=== PATIENT | male | born 1960 | race African-American/Black ===

== ENCOUNTER 2017-02-04 09:56 | Inpatient (IN) | payer OTHER ==
[2017-02-04 10:09] VITALS: BMI 23.5
--- NOTE | 2017-02-04 10:20 | HP ---
CIWA Score - CIWA Score Nausea/Vomitin-Mild Nausea/No Vomiting Muscle Tremors: 3 Anxiety: 4-Mod. Anxious/Guarded Agitation: 0-Normal Activity Paroxysmal Sweats: No Perspiration Orientation: 0-Oriented Tacttile Disturbances: 0-None Auditory Disturbances: 1-Very Mild Visual Disturbances: 1-Very Mild Sensitivity Headache: 2-Mild CIWA-Ar Total Score: 12 Admission ROS BHS - HPI Chief Complaint: I felt sick, I need help, it's from the drinking Allergies/Adverse Reactions: Allergies Allergy/AdvReac Type Severity Reaction Status Date / Time No Known Allergies Allergy Verified 02/04/17 10:13 History of Present Illness: 56 yo gentleman here for detox from alcohol - was at [facility] emergency room and sent here for detox - no seizures, past history of detox several years ago - reports multiple suicidal thoughts/admissions. Patient is prescribed oxycodone 30mg for pain - when told he cannot get that in detox he states 'that' s ok'. Exam Limitations: Clinical Condition - Ebola screening Have you traveled outside of the country in the last 21 days: No Have you had contact with anyone from an Ebola affected area: No Have you been sick,other than usual withdrawal symptoms: No Do you have a fever: No - Review of Systems Constitutional: Loss of Appetite, Malaise EENT: reports: No Symptoms Reported Respiratory: reports: No Symptoms reported Cardiac: reports: No Symptoms Reported GI: reports: Poor Appetite, Poor Fluid Intake : reports: Frequency Musculoskeletal: reports: Joint Pain Integumentary: reports: Dryness Neuro: reports: Headache Endocrine: reports: No Symptoms Reported Hematology: reports: No Symptoms Reported Psychiatric: reports: Judgement Intact, Mood/Affect Appropiate, Orientated x3, Anxious Other Systems: Reviewed and Negative Patient History - Patient Medical History Hx Anemia: No Hx Asthma: No Hx Chronic Obstructive Pulmonary Disease (COPD): No Hx Cancer: No Hx Cardiac Disorders: No Hx Congestive Heart Failure: No Hx Hypertension: No Hx Hypercholesterolemia: No Hx Pacemaker: No HX Cerebrovascular Accident: No Hx Seizures: No Hx Dementia: No Hx Diabetes: No Hx Gastrointestinal Disorders: No Hx Liver Disease: Yes (they say 'it's bad' from the drinking) Hx Genitourinary Disorders: No Hx Sexually Transmitted Disorders: No Hx Renal Disease (ESRD): Yes (sometimes I pee blood) Hx Thyroid Disease: No Hx Human Immunodeficiency Virus (HIV): No Hx Hepatitis C: No Hx Depression: Yes Hx Suicide Attempt: Yes (multiple times, last time a week ago - wanted to jump off a bridge) Hx Bipolar Disorder: No Hx Schizophrenia: No - Patient Surgical History Past Surgical History: Yes Hx Cataract Extraction: Yes (jan 2016) Hx Orthopedic Surgery: Yes (left ankle repair about ) - PPD History Previous Implant?: No Implanted On Prior R Admission?: No PPD to be Administered?: Yes - Reproductive History Patient is a Female of Child Bearing Age (11 -55 yrs old): No (male) Patient : No - Smoking Cessation Smoking history: Current every day smoker Have you smoked in the past 12 months: Yes Aproximately how many cigarettes per day: 20 Initiated information on smoking cessation: Yes 'Breaking Loose' booklet given: 02/04/17 - Substance & Tx. History Hx Alcohol Use: Yes Hx Substance Use: No Substance Use Type: Alcohol Hx Substance Use Treatment: Yes (detox) - Substances Abused Alcohol Route: Oral Frequency: Daily Amount used: six pack of 24 oz beers; 3 pints liquor Age of first use: 17 Date of Last Use: 02/03/17 Family Disease History - Family Disease History Family Disease History: Other: Father (, ? ), Mother (, stroke) , Brother (7 - living - etoh), Sister (1 - living), Son (1 - living - age 34), Daughter (1 - living - age 31) Admission Physical Exam BHS - Vital Signs Vital Signs: Vital Signs - 24 hr 02/04/17 09:58 Temperature 96.4 F L Pulse Rate 90 Respiratory 18 Rate Blood Pressure 120/80 - Physical General Appearance: Yes: Nourished, Appropriately Dressed, Moderate Distress, Anxious HEENTM: Yes: Hearing grossly Normal, Normal ENT Inspection, Normocephalic, Normal Voice Respiratory: Yes: Normal Breath Sounds, No Respiratory Distress Neck: Yes: No masses,lesions,Nodules, Supple Breast: Yes: Breast Exam Deferred Cardiology: Yes: Regular Rhythm, Regular Rate Abdominal: Yes: Soft Genitourinary: Yes: Frequency Back: Yes: Normal Inspection Musculoskeletal: Yes: full range of Motion, Gait Steady, Other (left ankle surgical scar) Extremities: Yes: Normal Capillary Refill, Normal Inspection Neurological: Yes: Fully Oriented, Alert, Normal Mood/Affect, Normal Response Integumentary: Yes: Normal Color, Dry, Warm Lymphatic: Yes: Within Normal Limits - Diagnostic (1) Alcohol dependence with uncomplicated withdrawal Current Visit: Yes Status: Acute (2) Nicotine dependence Current Visit: Yes Status: Chronic Qualifiers: Nicotine product type: cigarettes Substance use status: uncomplicated Qualified Code(s): F17.210 - Nicotine dependence, cigarettes, uncomplicated (3) Ankle pain, chronic Current Visit: Yes Status: Acute Qualifiers: Laterality: left Qualified Code(s): M25.572 - Pain in left ankle and joints of left foot; G89.29 - Other chronic pain (4) History of cataract surgery Current Visit: Yes Status: Chronic Qualifiers: Laterality: unspecified laterality Qualified Code(s): Z98.49 - Cataract extraction status, unspecified eye Comment: both eyes - continues to take eye drops Cleared for Admission BHS - Detox or Rehab [facility] Level of Care: Medically Managed Detox Regimen/Protocol: Librium S Breath Alcohol Content Breath Alcohol Content: 0.039 Urine Drug Screen - Results Drug Screen Negative: No Urine Drug Screen Results: BZO-Benzodiazepines
[2017-02-04] MEDS ORDERED: LOPERAMIDE HCL 2 MG CAPSULE PO PRN (10:27)
[2017-02-04] MEDS ORDERED: chlordiazePOXIDE HCL 25 MG CAPSULE PO PRN (10:27)
[2017-02-04] MEDS ORDERED: MAGNESIUM CITRATE 300 ML BOTTLE PO PRN (10:27)
[2017-02-04] MEDS ORDERED: MAGNESIUM HYDROX 2400MG/30ML ORAL SUSPENSION 30 ML CUP PO PRN (10:27)
[2017-02-04] MEDS ORDERED: MENTHOL/PHENOL 1 EACH UD MM PRN (10:27)
[2017-02-04] MEDS ORDERED: ACETAMINOPHEN 325 MG TABLET (FP) PO PRN (10:27)
[2017-02-04] MEDS ORDERED: hydrOXYzine PAMOATE 50 MG CAPSULE (FP) PO PRN (10:27)
[2017-02-04] MEDS ORDERED: P-EPHED 60MG/TRIPROLIDI 2.5MG TABLET PO PRN (10:27)
[2017-02-04] MEDS ORDERED: guaiFENesin/D-METHORPHAN HB 10 ML UNIT-DOSE CUPS PO PRN (10:27)
[2017-02-04] MEDS ORDERED: MAG HYDROX/AL HYDROX/SIMETH 30 ML UNIT-DOSE CUP PO PRN (10:27)
[2017-02-04] MEDS ORDERED: chlordiazePOXIDE HCL 25 MG CAPSULE PO ONE (11:30)
[2017-02-04] MEDS: NICOTINE 21 MG/24 HOURS TOPICAL PATCH TD SCH (12:05)
[2017-02-04] MEDS ORDERED: [UNRECOGNIZED DRUG - OTHER] OU SCH (14:00)
[2017-02-04] MEDS ORDERED: KETOROLAC TROMETHAMINE OU SCH (14:00)
[2017-02-04] MEDS: prednisoLONE ACETATE 1% OPHTH SUSP 5 ML BOTTLE OU SCH ×2 (14:35→23:13)
[2017-02-04] MEDS: KETOROLAC TROMETHAMINE 0.5% 5 ML BOTTLE OPTHALMIC OU SCH ×2 (14:35→23:13)
[2017-02-04] MEDS: IBUPROFEN 400 MG TABLET (FP) PO PRN (15:29)
[2017-02-04] MEDS: chlordiazePOXIDE HCL 25 MG CAPSULE PO SCH ×2 (17:54→23:13)
[2017-02-04] MEDS ORDERED: diphenhydrAMINE HCL 50 MG CAPSULE PO PRN (22:00)
[2017-02-04 22:31] LABS: URINE APPEARANCE CLEAR; URINE BILIRUBIN NEGATIVE (NEGATIVE); URINE BLOOD NEGATIVE (NEGATIVE); URINE COLOR LTYELLOW; URINE GLUCOSE (UA) NEGATIVE (NEGATIVE); URINE KETONE NEGATIVE (NEGATIVE); URINE LEUK ESTERASE NEGATIVE (NEGATIVE); URINE NITRITE NEGATIVE (NEGATIVE); URINE PROTEIN NEGATIVE (NEGATIVE); URINE UROBILINOGEN NEGATIVE mg/dL (0.2-1.0)
[2017-02-04] MEDS: THIAMINE HCL 100 MG TABLET (FP) PO SCH (23:13)
[2017-02-05] MEDS: KETOROLAC TROMETHAMINE 0.5% 5 ML BOTTLE OPTHALMIC OU SCH ×3 (06:28→22:08)
[2017-02-05] MEDS: prednisoLONE ACETATE 1% OPHTH SUSP 5 ML BOTTLE OU SCH ×3 (06:28→22:08)
[2017-02-05] MEDS: chlordiazePOXIDE HCL 25 MG CAPSULE PO SCH ×4 (06:28→22:08)
[2017-02-05 09:55] LABS: MCH 34.2 pg (25.7-33.7); MCHC 32.7 g/dl (32.0-35.9); MEAN CELL VOLUME 104.3 fl (80-96); MEAN PLT VOLUME 11.7 fl (7.5-11.1); WHITE BLOOD COUNT 4.1 K/mm3 (4.0-10.0)
--- NOTE | 2017-02-05 09:55 | EKG ---
Test Reason : Blood Pressure : / mmHG Vent. Rate : 072 BPM Atrial Rate : 072 BPM P-R Int : 146 ms QRS Dur : 092 ms QT Int : 372 ms P-R-T Axes : 026 052 049 degrees QTc Int : 407 ms NORMAL SINUS RHYTHM NORMAL ECG NO PREVIOUS ECGS AVAILABLE Confirmed by MD LIZA, PORFIRIO ([id number]) on 02/05/2017 9:55:34 AM Referred By: Confirmed By:PORFIRIO DE JESUS MD
[2017-02-05 09:58] LABS: ALBUMIN 3.3 g/dl (3.4-5.0); ANION GAP 7 (8-16); CALCIUM 9.3 mg/dL (8.5-10.1); CO2 30 mmol/L (21-32); GLUCOSE,RANDOM 94 mg/dL (74-106)
[2017-02-05 10:01] LABS: ALK PHOS 84 U/L (45-117); CREATININE 0.6 mg/dL (0.7-1.3); SGOT/AST 39 U/L (15-37); SGPT/ALT 70 U/L (12-78); TOT PROT 6.7 g/dl (6.4-8.2)
[2017-02-05 10:32] LABS: PLATELET COMMENT2 NO CLOTTING DETECTED; PLATELET COUNT 57 K/MM3 (134-434); PLATELET ESTIMATE DECREASED (NORMAL)
[2017-02-05] MEDS: PRENATAL VITAMINS W/ FOLIC ACID TABLET (FP) PO SCH (10:44)
[2017-02-05] MEDS: NICOTINE 21 MG/24 HOURS TOPICAL PATCH TD SCH (10:44)
--- NOTE | 2017-02-05 15:42 | PN ---
S CIWA - CIWA Score Nausea/Vomitin Muscle Tremors: 4-Moderate,w/Arms Extend Anxiety: 4-Mod. Anxious/Guarded Agitation: 4-Moderately Restless Paroxysmal Sweats: 3 Orientation: 0-Oriented Tacttile Disturbances: 1-Very Mild Itch/Numbness Auditory Disturbances: 0-None Visual Disturbances: 0-None Headache: 1-Very Mild CIWA-Ar Total Score: 20 BHS Progress Note (SOAP) Subjective: Tremor, chills, nausea, sweating, anxious Objective: 02/05/17 15:40 Last Vital Signs Temp Pulse Resp BP Pulse Ox 98.5 F 72 18 114/81 02/05/17 13:14 02/05/17 13:14 02/05/17 13:14 02/05/17 13:14 Laboratory Tests 02/04/17 02/05/17 02/05/17 22:00 07:50 07:50 WBC 4.1 RBC 3.72 L Hgb 12.7 Hct 38.8 MCV 104.3 H MCH 34.2 H MCHC 32.7 RDW 15.0 Plt Count 57 L MPV 11.7 H Platelet Estimate Decreased Platelet Comment No clotting detected Sodium 138 Potassium 4.1 Chloride 101 Carbon Dioxide 30 Anion Gap 7 L BUN 8 Creatinine 0.6 L Creat Clearance w eGFR > 60 Random Glucose 94 Calcium 9.3 Total Bilirubin 1.0 AST 39 H ALT 70 Alkaline Phosphatase 84 Total Protein 6.7 Albumin 3.3 L Urine Color Ltyellow Urine Appearance Clear Urine pH 5.0 Ur Specific [place] >= 1.030 H Urine Protein Negative Urine Glucose (UA) Negative Urine Ketones Negative Urine Blood Negative Urine Nitrite Negative Urine Bilirubin Negative Urine Urobilinogen Negative Ur Leukocyte Esterase Negative RPR Titer 02/05/17 07:50 WBC RBC Hgb Hct MCV MCH MCHC RDW Plt Count MPV Platelet Estimate Platelet Comment Sodium Potassium Chloride Carbon Dioxide Anion Gap BUN Creatinine Creat Clearance w eGFR Random Glucose Calcium Total Bilirubin AST ALT Alkaline Phosphatase Total Protein Albumin Urine Color Urine Appearance Urine pH Ur Specific [place] Urine Protein Urine Glucose (UA) Urine Ketones Urine Blood Urine Nitrite Urine Bilirubin Urine Urobilinogen Ur Leukocyte Esterase RPR Titer Nonreactive Labs noted: plt 57 Assessment: 02/05/17 15:41 Withdrawal symptoms Noted with thrombocytopenia Plan: Continue detox Thrombocytopenia: monitor for bleeding/bruising, follow up with PCP/ [facility] in 1 week post discharge for monitoring
[2017-02-05] MEDS: THIAMINE HCL 100 MG TABLET (FP) PO SCH (22:08)
[2017-02-06] MEDS: KETOROLAC TROMETHAMINE 0.5% 5 ML BOTTLE OPTHALMIC OU SCH ×3 (06:11→21:59)
[2017-02-06] MEDS: chlordiazePOXIDE HCL 25 MG CAPSULE PO SCH ×2 (06:11→10:46)
[2017-02-06] MEDS: prednisoLONE ACETATE 1% OPHTH SUSP 5 ML BOTTLE OU SCH ×3 (06:11→21:59)
[2017-02-06] MEDS: PRENATAL VITAMINS W/ FOLIC ACID TABLET (FP) PO SCH (10:46)
[2017-02-06] MEDS: NICOTINE 21 MG/24 HOURS TOPICAL PATCH TD SCH (10:46)
--- NOTE | 2017-02-06 10:57 | PN ---
S CIWA - CIWA Score Nausea/Vomitin Muscle Tremors: 4-Moderate,w/Arms Extend Anxiety: 4-Mod. Anxious/Guarded Agitation: 4-Moderately Restless Paroxysmal Sweats: 3 Orientation: 0-Oriented Tacttile Disturbances: 1-Very Mild Itch/Numbness Auditory Disturbances: 0-None Visual Disturbances: 0-None Headache: 1-Very Mild CIWA-Ar Total Score: 20 BHS Progress Note (SOAP) Subjective: nausea, sweats, interrupted sleep, anxiety, tremors Objective: 02/06/17 10:56 Vital Signs - 8 hr 02/06/17 02/06/17 02/06/17 03:38 06:26 09:14 Temperature 97 F L 97.7 F Pulse Rate 67 75 Respiratory 18 18 18 Rate Blood Pressure 113/73 98/69 Laboratory Tests 02/04/17 02/05/17 02/05/17 22:00 07:50 07:50 WBC 4.1 RBC 3.72 L Hgb 12.7 Hct 38.8 MCV 104.3 H MCH 34.2 H MCHC 32.7 RDW 15.0 Plt Count 57 L MPV 11.7 H Platelet Estimate Decreased Platelet Comment No clotting detected Sodium 138 Potassium 4.1 Chloride 101 Carbon Dioxide 30 Anion Gap 7 L BUN 8 Creatinine 0.6 L Creat Clearance w eGFR > 60 Random Glucose 94 Calcium 9.3 Total Bilirubin 1.0 AST 39 H ALT 70 Alkaline Phosphatase 84 Total Protein 6.7 Albumin 3.3 L Urine Color Ltyellow Urine Appearance Clear Urine pH 5.0 Ur Specific [place] >= 1.030 H Urine Protein Negative Urine Glucose (UA) Negative Urine Ketones Negative Urine Blood Negative Urine Nitrite Negative Urine Bilirubin Negative Urine Urobilinogen Negative Ur Leukocyte Esterase Negative RPR Titer 02/05/17 07:50 WBC RBC Hgb Hct MCV MCH MCHC RDW Plt Count MPV Platelet Estimate Platelet Comment Sodium Potassium Chloride Carbon Dioxide Anion Gap BUN Creatinine Creat Clearance w eGFR Random Glucose Calcium Total Bilirubin AST ALT Alkaline Phosphatase Total Protein Albumin Urine Color Urine Appearance Urine pH Ur Specific [place] Urine Protein Urine Glucose (UA) Urine Ketones Urine Blood Urine Nitrite Urine Bilirubin Urine Urobilinogen Ur Leukocyte Esterase RPR Titer Nonreactive Assessment: 02/06/17 10:56 withdrawal sx Plan: cont detox, fluids
--- NOTE | 2017-02-06 14:33 | CONSULT ---
[facility] Psychiatric Consult - Data Date of interview: 02/06/17 Admission source: [facility] Identifying data: First admission to [facility] for this 56 y/o AA male seeking detox treatment on for alcohol dependence.Patient is single,a father of two,domiciled,unemployed and supported on SSI benefits. Substance Abuse History: Confirmed by patient. Smoking Cessation. Smoking history: Current every day smoker. Have you smoked in the past 12 months: Yes. Aproximately how many cigarettes per day: 20. Initiated information on smoking cessation: Yes. 'Breaking Loose' booklet given: 02/04/17. - Substance & Tx. History. Hx Alcohol Use: Yes. Hx Substance Use: No. Substance Use Type : Alcohol. Hx Substance Use Treatment: Yes (detox). - Substances Abused. Alcohol. Route: Oral. Frequency: Daily. Amount used: six pack of 24 oz beers ; 3 pints liquor. Age of first use: 17. Date of Last Use: 02/03/17 Medical History: Liver disease and a history of cataracts (extraction in 2015) + orthosurgery for fracture of left ankle (1989). Psychiatric History: Patient admits to one psychiatric hospitalization ([facility]).No recall of diagnosis or medications.Mr Bansal denies history of psychiatric OPD care.He admits to a history of suicide attempts via self-mutilation (wrist-cutting) years ago. Physical/Sexual Abuse/Trauma History: Patient denies. Additional Comment: Urine Drug Screen Results: BZO-Benzodiazepines.Noted. Mental Status Exam - Mental Status Exam Alert and Oriented to: Time, Place, Person Cognitive Function: Good Patient Appearance: Well Groomed Mood: Hopeful, Euthymic Affect: Appropriate, Normal Range Patient Behavior: Appropriate, Cooperative Speech Pattern: Clear Voice Loudness: Normal Thought Process: Goal Oriented Thought Disorder: Not Present Hallucinations: Denies Suicidal Ideation: Denies Homicidal Ideation: Denies Insight/Judgement: Poor Sleep: Poorly, Difficulty falling asleep Appetite: Good Muscle strength/Tone: Normal Gait/Station: Normal Psychiatric Findings - Problem List ([place] 1, 2,3) (1) Alcohol dependence with uncomplicated withdrawal Current Visit: Yes Status: Acute (2) Nicotine dependence Current Visit: Yes Status: Chronic Qualifiers: Nicotine product type: cigarettes Substance use status: uncomplicated Qualified Code(s): F17.210 - Nicotine dependence, cigarettes, uncomplicated - Initial Treatment Plan Initial Treatment Plan: Psychoeducation.Detoxification.Observation.
[2017-02-06] MEDS: chlordiazePOXIDE 5 MG CAPSULE PO SCH ×2 (17:01→21:59)
[2017-02-06] MEDS: IBUPROFEN 400 MG TABLET (FP) PO PRN (21:37)
[2017-02-06] MEDS: THIAMINE HCL 100 MG TABLET (FP) PO SCH (21:59)
[2017-02-07] MEDS: chlordiazePOXIDE 5 MG CAPSULE PO SCH ×2 (06:02→10:37)
[2017-02-07] MEDS: KETOROLAC TROMETHAMINE 0.5% 5 ML BOTTLE OPTHALMIC OU SCH (06:04)
[2017-02-07] MEDS: prednisoLONE ACETATE 1% OPHTH SUSP 5 ML BOTTLE OU SCH (06:04)
[2017-02-07 09:20] VITALS: BP 106/74; PULSE 71; TEMP 98.1
[2017-02-07] MEDS: NICOTINE 21 MG/24 HOURS TOPICAL PATCH TD SCH (10:37)
[2017-02-07] MEDS: PRENATAL VITAMINS W/ FOLIC ACID TABLET (FP) PO SCH (10:37)
--- NOTE | 2017-02-07 12:31 | DS ---
[facility] Detox Discharge Summary Admission Date: 02/04/17 Discharge Date: 02/07/17 - History Present History: Alcohol Dependence Additional Comments: PT DECLINED TO CONTINUE WITH DETOX FOR PERSONAL REASONS. Pertinent Past History: S/P CATARACT SX CHRONIC ANKLE PAIN - Physical Exam Results Vital Signs: Vital Signs Temperature 98.1 F 02/07/17 09:19 Pulse Rate 71 02/07/17 09:19 Respiratory Rate 18 02/07/17 09:19 Blood Pressure 106/74 02/07/17 09:19 O2 Sat by Pulse Oximetry (%) Pertinent Admission Physical Exam Findings: WITHDRAWAL SX Vital Signs Temperature 98.1 F 02/07/17 09:19 Pulse Rate 71 02/07/17 09:19 Respiratory Rate 18 02/07/17 09:19 Blood Pressure 106/74 02/07/17 09:19 O2 Sat by Pulse Oximetry (%) Laboratory Last Values WBC 4.1 K/mm3 (4.0-10.0) 02/05/17 07:50 RBC 3.72 M/mm3 (4.00-5.60) L 02/05/17 07:50 Hgb 12.7 GM/dL (11.7-16.9) 02/05/17 07:50 Hct 38.8 % (35.4-49) 02/05/17 07:50 MCV 104.3 fl (80-96) H 02/05/17 07:50 MCH 34.2 pg (25.7-33.7) H 02/05/17 07:50 MCHC 32.7 g/dl (32.0-35.9) 02/05/17 07:50 RDW 15.0 % (11.9-15.9) 02/05/17 07:50 Plt Count 57 K/MM3 (134-434) L 02/05/17 07:50 MPV 11.7 fl (7.5-11.1) H 02/05/17 07:50 Platelet Estimate Decreased (NORMAL) 02/05/17 07:50 Platelet Comment No clumping noted 02/05/17 07:50 Platelet Comment No clotting detected 02/05/17 07:50 Sodium 138 mmol/L (136-145) 02/05/17 07:50 Potassium 4.1 mmol/L (3.5-5.1) 02/05/17 07:50 Chloride 101 mmol/L (98-107) 02/05/17 07:50 Carbon Dioxide 30 mmol/L (21-32) 02/05/17 07:50 Anion Gap 7 (8-16) L 02/05/17 07:50 BUN 8 mg/dL (7-18) 02/05/17 07:50 Creatinine 0.6 mg/dL (0.7-1.3) L 02/05/17 07:50 Creat Clearance w eGFR > 60 (>60) 02/05/17 07:50 Random Glucose 94 mg/dL (74-106) 02/05/17 07:50 Calcium 9.3 mg/dL (8.5-10.1) 02/05/17 07:50 Total Bilirubin 1.0 mg/dL (0.2-1.0) 02/05/17 07:50 AST 39 U/L (15-37) H 02/05/17 07:50 ALT 70 U/L (12-78) 02/05/17 07:50 Alkaline Phosphatase 84 U/L (45-117) 02/05/17 07:50 Total Protein 6.7 g/dl (6.4-8.2) 02/05/17 07:50 Albumin 3.3 g/dl (3.4-5.0) L 02/05/17 07:50 Urine Color Ltyellow 02/04/17 22:00 Urine Appearance Clear 02/04/17 22:00 Urine pH 5.0 (5.0-8.0) 02/04/17 22:00 Ur Specific [place] >= 1.030 (1.005-1.025) H 02/04/17 22:00 Urine Protein Negative (NEGATIVE) 02/04/17 22:00 Urine Glucose (UA) Negative (NEGATIVE) 02/04/17 22:00 Urine Ketones Negative (NEGATIVE) 02/04/17 22:00 Urine Blood Negative (NEGATIVE) 02/04/17 22:00 Urine Nitrite Negative (NEGATIVE) 02/04/17 22:00 Urine Bilirubin Negative (NEGATIVE) 02/04/17 22:00 Urine Urobilinogen Negative mg/dL (0.2-1.0) 02/04/17 22:00 Ur Leukocyte Esterase Negative (NEGATIVE) 02/04/17 22:00 RPR Titer Nonreactive (NONREACTIVE) 02/05/17 07:50 - Treatment Hospital Course: Discharged Condition Good - Medication Discharge Medications: Ambulatory Orders Ketorolac Tromethamine/Pf [Acuvail] 1 each OU TID 02/04/17 Oxycodone HCl 30 mg PO TID PRN 02/04/17 Prednisolone 1% Ophthalmic [Pred Forte 1% -] 1 drop OU TID 02/04/17 - Diagnosis (1) Alcohol dependence with uncomplicated withdrawal Current Visit: Yes Status: Acute (2) Ankle pain, chronic Current Visit: Yes Status: Acute Qualifiers: Laterality: left Qualified Code(s): M25.572 - Pain in left ankle and joints of left foot; G89.29 - Other chronic pain (3) History of cataract surgery Current Visit: Yes Status: Chronic Qualifiers: Laterality: unspecified laterality Qualified Code(s): Z98.49 - Cataract extraction status, unspecified eye (4) Nicotine dependence Current Visit: Yes Status: Chronic Qualifiers: Nicotine product type: cigarettes Substance use status: uncomplicated Qualified Code(s): F17.210 - Nicotine dependence, cigarettes, uncomplicated - AMA Did Patient Leave Against Medical Advice: Yes (AMA)
[2017-02-07 13:03] LABS: HIV 1 & 2 AB NEGATIVE; HIV 1 AGp24 NEGATIVE
[2017-02-07] MEDS ORDERED: chlordiazePOXIDE HCL 10 MG CAPSULE PO SCH (17:00)
== END 2017-02-07 10:30 | disposition left against medical advice (07) | DRG 770 ==
LOC: YASAS 09:56 → Y3N 10:52
PROVIDERS: ADMIT Internal Medicine Addiction Medicine; ATTEND Internal Medicine Addiction Medicine
PROC: HZ2ZZZZ Detoxification Services for Substance Abuse Treatment (ICD-10-PCS; principal; 2017-02-04)
DX: F10.230 Alcohol dependence with withdrawal, uncomplicated (principal); F17.210 Nicotine dependence, cigarettes, uncomplicated; D69.6 Thrombocytopenia, unspecified; M25.572 Pain in left ankle and joints of left foot; G89.29 Other chronic pain; K76.9 Liver disease, unspecified; Z98.49 Cataract extraction status, unspecified eye; Z91.5 Personal history of self-harm
CPT/HCPCS: 36415; 80053; 81003; 85027; 86593; 87389; 93005; 93010

== ENCOUNTER 2017-03-25 13:05 | Inpatient (IN) | payer OTHER ==
[2017-03-25 13:21] VITALS: BMI 24.4
--- NOTE | 2017-03-25 13:22 | HP ---
CIWA Score - CIWA Score Nausea/Vomitin-Mild Nausea/No Vomiting Muscle Tremors: 4-Moderate,w/Arms Extend Anxiety: 4-Mod. Anxious/Guarded Agitation: 1-Slight > Activity Paroxysmal Sweats: 1-Minimal Palms Moist Orientation: 0-Oriented Tacttile Disturbances: 1-Very Mild Itch/Numbness Auditory Disturbances: 1-Very Mild Visual Disturbances: 1-Very Mild Sensitivity Headache: 1-Very Mild CIWA-Ar Total Score: 15 Admission ROS BHS - HPI Chief Complaint: My sister says I need to stop, I want to go to host coordinator too Allergies/Adverse Reactions: Allergies Allergy/AdvReac Type Severity Reaction Status Date / Time No Known Allergies Allergy Verified 03/25/17 13:47 History of Present Illness: 56 yo gentleman here for detox from alcohol - no seizures but does have black outs. Last time in detox here in january 2017. Although prescribed oxycodone 30mg tid, urine tox negative and states 'it's ok' if that he does not receive it while here for detox. Exam Limitations: Clinical Condition - Ebola screening Have you traveled outside of the country in the last 21 days: No Have you had contact with anyone from an Ebola affected area: No Do you have a fever: No - Review of Systems Constitutional: Loss of Appetite, Changes in sleep EENT: reports: Blurred Vision Respiratory: reports: No Symptoms reported Cardiac: reports: No Symptoms Reported GI: reports: Indigestion : reports: Frequency Musculoskeletal: reports: Joint Pain (left ankle) Integumentary: reports: No Symptoms Reported Neuro: reports: Headache Endocrine: reports: No Symptoms Reported Hematology: reports: No Symptoms Reported Psychiatric: reports: Judgement Intact, Mood/Affect Appropiate, Anxious Other Systems: Reviewed and Negative Patient History - Patient Medical History Hx Anemia: No Hx Asthma: No Hx Chronic Obstructive Pulmonary Disease (COPD): No Hx Cancer: No Hx Cardiac Disorders: No Hx Congestive Heart Failure: No Hx Hypertension: No Hx Hypercholesterolemia: No Hx Pacemaker: No HX Cerebrovascular Accident: No Hx Seizures: No Hx Dementia: No Hx Diabetes: No Hx Gastrointestinal Disorders: No Hx Liver Disease: Yes (they say 'it's bad' from the drinking) Hx Genitourinary Disorders: No Hx Sexually Transmitted Disorders: No Hx Renal Disease (ESRD): Yes (sometimes I pee blood) Hx Thyroid Disease: No Hx Human Immunodeficiency Virus (HIV): No Hx Hepatitis C: No Hx Depression: Yes Hx Suicide Attempt: Yes (multiple times, last time a week ago - wanted to jump off a bridge) Hx Bipolar Disorder: No Hx Schizophrenia: No - Patient Surgical History Past Surgical History: Yes Hx Neurologic Surgery: No Hx Cataract Extraction: Yes (jan 2016) Hx Cardiac Surgery: No Hx Lung Surgery: No Hx Breast Surgery: No Hx Breast Biopsy: No Hx Abdominal Surgery: No Hx Appendectomy: No Hx Cholecystectomy: No Hx Genitourinary Surgery: No Hx Section: No Hx Orthopedic Surgery: Yes (left ankle repair about ) - PPD History Previous Implant?: Yes Documented Results: Positive w/proof Implanted On Prior R Admission?: No Date: 02/06/17 PPD to be Administered?: Yes - Reproductive History Patient is a Female of Child Bearing Age (11 -55 yrs old): No (male) - Smoking Cessation Smoking history: Current every day smoker Have you smoked in the past 12 months: Yes Aproximately how many cigarettes per day: 10 Hx Chewing Tobacco Use: No Initiated information on smoking cessation: Yes 'Breaking Loose' booklet given: 03/25/17 (give on floor) - Substance & Tx. History Hx Alcohol Use: Yes Hx Substance Use: No Substance Use Type: Alcohol Hx Substance Use Treatment: Yes (detox, ) - Substances Abused Alcohol Route: Oral Frequency: Daily Amount used: 1 pint liquor; six pack 16 oz beer Age of first use: 15 Date of Last Use: 03/25/17 Family Disease History - Family Disease History Family Disease History: Other: Father (, ? ), Mother (, stroke) , Brother (7 - living - etoh), Sister (1 - living), Son (1 - living - age 34), Daughter (1 - living - age 31) Admission Physical Exam BHS - Vital Signs Vital Signs: Vital Signs Period Temp Pulse Resp BP Sys/Gibson Pulse Ox Last 24 Hr 96.2 F 93 20 114/89 - Physical General Appearance: Yes: Nourished, Appropriately Dressed, Mild Distress HEENTM: Yes: Hearing grossly Normal, Normocephalic, Normal Voice, Pharynx Normal Respiratory: Yes: Normal Breath Sounds, No Respiratory Distress Neck: Yes: No masses,lesions,Nodules, Supple Breast: Yes: Breast Exam Deferred Cardiology: Yes: Regular Rhythm, Regular Rate Abdominal: Yes: Soft Genitourinary: Yes: Frequency Back: Yes: Decreased Range of Motion Musculoskeletal: Yes: Gait Steady, Other (left ankle healed scar, mildly reduced ROM) Extremities: Yes: Normal Inspection, Non-Tender Neurological: Yes: Fully Oriented, Alert, Normal Mood/Affect, Normal Response Integumentary: Yes: Normal Color, Warm Lymphatic: Yes: Within Normal Limits - Diagnostic (1) Alcohol dependence with uncomplicated withdrawal Current Visit: Yes Status: Chronic (2) Ankle pain, chronic Current Visit: Yes Status: Chronic Qualifiers: Laterality: left Qualified Code(s): M25.572 - Pain in left ankle and joints of left foot; M25.572 - Pain in left ankle and joints of left foot; G89.29 - Other chronic pain; G89.29 - Other chronic pain (3) History of cataract surgery Current Visit: Yes Status: Chronic Qualifiers: Laterality: unspecified laterality Qualified Code(s): Z98.49 - Cataract extraction status, unspecified eye; Z98.49 - Cataract extraction status , unspecified eye Comment: both eyes - continues to take eye drops - states last saw optho in October 2016 (4) Nicotine dependence Current Visit: Yes Status: Chronic Qualifiers: Nicotine product type: cigarettes Substance use status: uncomplicated Qualified Code(s): F17.210 - Nicotine dependence, cigarettes, uncomplicated; F17.210 - Nicotine dependence, cigarettes, uncomplicated Cleared for Admission BHS - Detox or Rehab [facility] Level of Care: Medically Managed Detox Regimen/Protocol: Librium S Breath Alcohol Content Breath Alcohol Content: 0.039
[2017-03-25] MEDS ORDERED: chlordiazePOXIDE HCL 25 MG CAPSULE PO ONE (13:30)
[2017-03-25] MEDS ORDERED: guaiFENesin/D-METHORPHAN HB 10 ML UNIT-DOSE CUPS PO PRN (13:30)
[2017-03-25] MEDS ORDERED: chlordiazePOXIDE HCL 25 MG CAPSULE PO PRN (13:30)
[2017-03-25] MEDS ORDERED: MENTHOL/PHENOL 1 EACH UD MM PRN (13:30)
[2017-03-25] MEDS ORDERED: P-EPHED 60MG/TRIPROLIDI 2.5MG TABLET PO PRN (13:30)
[2017-03-25] MEDS ORDERED: ACETAMINOPHEN 325 MG TABLET (FP) PO PRN (13:30)
[2017-03-25] MEDS ORDERED: MAGNESIUM CITRATE 300 ML BOTTLE PO PRN (13:30)
[2017-03-25] MEDS ORDERED: LOPERAMIDE HCL 2 MG CAPSULE PO PRN (13:30)
[2017-03-25] MEDS ORDERED: MAGNESIUM HYDROX 2400MG/30ML ORAL SUSPENSION 30 ML CUP PO PRN (13:30)
[2017-03-25] MEDS ORDERED: MAG HYDROX/AL HYDROX/SIMETH 30 ML UNIT-DOSE CUP PO PRN (13:30)
[2017-03-25] MEDS ORDERED: IBUPROFEN 400 MG TABLET (FP) PO PRN (13:30)
[2017-03-25] MEDS: prednisoLONE ACETATE 1% OPHTH SUSP 5 ML BOTTLE OU SCH ×2 (14:00→22:43)
[2017-03-25] MEDS: NICOTINE 21 MG/24 HOURS TOPICAL PATCH TD SCH (15:38)
[2017-03-25] MEDS: hydrOXYzine PAMOATE 50 MG CAPSULE (FP) PO PRN (15:41)
[2017-03-25] MEDS: chlordiazePOXIDE HCL 25 MG CAPSULE PO SCH ×2 (17:55→22:41)
[2017-03-25 19:15] LABS: URINE APPEARANCE CLEAR; URINE BILIRUBIN NEGATIVE (NEGATIVE); URINE BLOOD NEGATIVE (NEGATIVE); URINE COLOR STRAW; URINE GLUCOSE (UA) NEGATIVE (NEGATIVE); URINE KETONE NEGATIVE (NEGATIVE); URINE NITRITE NEGATIVE (NEGATIVE); URINE PROTEIN NEGATIVE (NEGATIVE); URINE UROBILINOGEN NEGATIVE mg/dL (0.2-1.0)
[2017-03-25 22:26] LABS: URINE LEUK ESTERASE Negative (NEGATIVE)
[2017-03-25] MEDS: THIAMINE HCL 100 MG TABLET (FP) PO SCH (22:41)
[2017-03-26] MEDS: chlordiazePOXIDE HCL 25 MG CAPSULE PO SCH ×4 (05:36→22:29)
[2017-03-26] MEDS: prednisoLONE ACETATE 1% OPHTH SUSP 5 ML BOTTLE OU SCH ×3 (07:38→22:29)
--- NOTE | 2017-03-26 09:11 | EKG ---
Test Reason : Blood Pressure : / mmHG Vent. Rate : 092 BPM Atrial Rate : 092 BPM P-R Int : 148 ms QRS Dur : 084 ms QT Int : 344 ms P-R-T Axes : 066 051 045 degrees QTc Int : 425 ms NORMAL SINUS RHYTHM NORMAL ECG WHEN COMPARED WITH ECG OF 04-FEB-2017 12:11, NO SIGNIFICANT CHANGE WAS FOUND Confirmed by KARLA POLK MD ([id number]) on 03/26/2017 9:10:55 AM Referred By: Confirmed By:KARLA POLK MD
[2017-03-26] MEDS: PRENATAL VITAMINS W/ FOLIC ACID TABLET (FP) PO SCH (10:51)
[2017-03-26] MEDS: NICOTINE 21 MG/24 HOURS TOPICAL PATCH TD SCH (10:52)
[2017-03-26 11:12] LABS: MCH 34.2 pg (25.7-33.7); MEAN CELL VOLUME 103.7 fl (80-96); MEAN PLT VOLUME 11.5 fl (7.5-11.1); PLATELET COUNT 82 K/MM3 (134-434); RDW 15.4 % (11.9-15.9); WHITE BLOOD COUNT 4.2 K/mm3 (4.0-10.0)
[2017-03-26 11:21] LABS: ALBUMIN 3.4 g/dl (3.4-5.0); ANION GAP 5 (8-16); CO2 30 mmol/L (21-32); GLUCOSE,RANDOM 97 mg/dL (74-106); SGOT/AST 18 U/L (15-37)
[2017-03-26 11:26] LABS: ALK PHOS 88 U/L (45-117); BILIRUBIN,TOTAL 0.7 mg/dL (0.2-1.0); CREATININE 0.7 mg/dL (0.7-1.3); SGPT/ALT 32 U/L (12-78); TOT PROT 6.8 g/dl (6.4-8.2)
[2017-03-26] MEDS ORDERED: FLU VACCINE QUAD 60 MCG/0.5 ML (MDV 17-18) IM ONE (12:00)
[2017-03-26 12:02] LABS: HIV 1 & 2 AB NEGATIVE; HIV 1 AGp24 NEGATIVE
[2017-03-26 12:28] LABS: PLATELET COMMENT2 MANY LARGE PLTS; PLATELET COMMENT3 NO CLUMPING NOTED; PLATELET ESTIMATE DECREASED (NORMAL)
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
--- NOTE | 2017-03-26 13:01 | PN ---
S CIWA - CIWA Score Nausea/Vomitin Muscle Tremors: 3 Anxiety: 3 Agitation: 2 Paroxysmal Sweats: 1-Minimal Palms Moist Orientation: 0-Oriented Tacttile Disturbances: 1-Very Mild Itch/Numbness Auditory Disturbances: 1-Very Mild Visual Disturbances: 0-None Headache: 2-Mild CIWA-Ar Total Score: 16 BHS Progress Note (SOAP) Subjective: ALERT,IRRITABLE,ANXIOUS,INTERRUPTED SLEEP,TREMOR Objective: 03/26/17 12:58 Vital Signs Temperature 96.8 F L 03/26/17 10:00 Pulse Rate 74 03/26/17 10:00 Respiratory Rate 18 03/26/17 10:00 Blood Pressure 118/69 03/26/17 10:00 O2 Sat by Pulse Oximetry (%) EKG NSR,NORMAL ECG Laboratory Last Values WBC 4.2 K/mm3 (4.0-10.0) 03/26/17 07:30 RBC 3.76 M/mm3 (4.00-5.60) L 03/26/17 07:30 Hgb 12.8 GM/dL (11.7-16.9) 03/26/17 07:30 Hct 38.9 % (35.4-49) 03/26/17 07:30 MCV 103.7 fl (80-96) H 03/26/17 07:30 MCH 34.2 pg (25.7-33.7) H 03/26/17 07:30 MCHC 33.0 g/dl (32.0-35.9) 03/26/17 07:30 RDW 15.4 % (11.9-15.9) 03/26/17 07:30 Plt Count 82 K/MM3 (134-434) L D 03/26/17 07:30 MPV 11.5 fl (7.5-11.1) H 03/26/17 07:30 Platelet Estimate Decreased (NORMAL) 03/26/17 07:30 Platelet Comment Mod giant plts 03/26/17 07:30 Platelet Comment Many large plts 03/26/17 07:30 Sodium 138 mmol/L (136-145) 03/26/17 07:30 Potassium 3.8 mmol/L (3.5-5.1) 03/26/17 07:30 Chloride 103 mmol/L (98-107) 03/26/17 07:30 Carbon Dioxide 30 mmol/L (21-32) 03/26/17 07:30 Anion Gap 5 (8-16) L 03/26/17 07:30 BUN 10 mg/dL (7-18) D 03/26/17 07:30 Creatinine 0.7 mg/dL (0.7-1.3) 03/26/17 07:30 Creat Clearance w eGFR > 60 (>60) 03/26/17 07:30 Random Glucose 97 mg/dL (74-106) 03/26/17 07:30 Calcium 9.0 mg/dL (8.5-10.1) 03/26/17 07:30 Total Bilirubin 0.7 mg/dL (0.2-1.0) D 03/26/17 07:30 AST 18 U/L (15-37) D 03/26/17 07:30 ALT 32 U/L (12-78) D 03/26/17 07:30 Alkaline Phosphatase 88 U/L (45-117) 03/26/17 07:30 Total Protein 6.8 g/dl (6.4-8.2) 03/26/17 07:30 Albumin 3.4 g/dl (3.4-5.0) 03/26/17 07:30 Urine Color Straw 03/25/17 19:07 Urine Appearance Clear 03/25/17 19:07 Urine pH 6.0 (5.0-8.0) 03/25/17 19:07 Ur Specific [place] <= 1.005 (1.005-1.025) 03/25/17 19:07 Urine Protein Negative (NEGATIVE) 03/25/17 19:07 Urine Glucose (UA) Negative (NEGATIVE) 03/25/17 19:07 Urine Ketones Negative (NEGATIVE) 03/25/17 19:07 Urine Blood Negative (NEGATIVE) 03/25/17 19:07 Urine Nitrite Negative (NEGATIVE) 03/25/17 19:07 Urine Bilirubin Negative (NEGATIVE) 03/25/17 19:07 Urine Urobilinogen Negative mg/dL (0.2-1.0) 03/25/17 19:07 Ur Leukocyte Esterase Negative (NEGATIVE) 03/25/17 19:07 RPR Titer Nonreactive (NONREACTIVE) 03/26/17 07:30 HIV 1&2 Antibody Screen Negative 03/26/17 07:30 HIV P24 Antigen Negative 03/26/17 07:30 03/26/17 13:00 Assessment: 03/26/17 13:00 WITHDRAWAL SYMPTOM Plan: CONTINUE DETOX
[2017-03-26] MEDS: THIAMINE HCL 100 MG TABLET (FP) PO SCH (22:29)
[2017-03-27] MEDS: prednisoLONE ACETATE 1% OPHTH SUSP 5 ML BOTTLE OU SCH ×3 (05:14→22:27)
[2017-03-27] MEDS: chlordiazePOXIDE HCL 25 MG CAPSULE PO SCH ×2 (05:14→10:10)
[2017-03-27] MEDS: hydrOXYzine PAMOATE 50 MG CAPSULE (FP) PO PRN (05:15)
[2017-03-27] MEDS: PRENATAL VITAMINS W/ FOLIC ACID TABLET (FP) PO SCH (10:09)
[2017-03-27] MEDS: NICOTINE 21 MG/24 HOURS TOPICAL PATCH TD SCH (10:10)
--- NOTE | 2017-03-27 10:32 | PN ---
S CIWA - CIWA Score Nausea/Vomitin Muscle Tremors: 3 Anxiety: 3 Agitation: 3 Paroxysmal Sweats: 1-Minimal Palms Moist Orientation: 0-Oriented Tacttile Disturbances: 1-Very Mild Itch/Numbness Auditory Disturbances: 1-Very Mild Visual Disturbances: 0-None Headache: 2-Mild CIWA-Ar Total Score: 17 BHS Progress Note (SOAP) Subjective: ALERT,IRRITABLE,ANXIOUS,INTERRUPTED SLEEP,TREMOR Objective: 03/27/17 10:30 Vital Signs Temperature 98.1 F 03/27/17 09:38 Pulse Rate 100 H 03/27/17 09:38 Respiratory Rate 20 03/27/17 09:38 Blood Pressure 154/96 03/27/17 09:38 O2 Sat by Pulse Oximetry (%) 03/27/17 10:30 Laboratory Last Values WBC 4.2 K/mm3 (4.0-10.0) 03/26/17 07:30 RBC 3.76 M/mm3 (4.00-5.60) L 03/26/17 07:30 Hgb 12.8 GM/dL (11.7-16.9) 03/26/17 07:30 Hct 38.9 % (35.4-49) 03/26/17 07:30 MCV 103.7 fl (80-96) H 03/26/17 07:30 MCH 34.2 pg (25.7-33.7) H 03/26/17 07:30 MCHC 33.0 g/dl (32.0-35.9) 03/26/17 07:30 RDW 15.4 % (11.9-15.9) 03/26/17 07:30 Plt Count 82 K/MM3 (134-434) L D 03/26/17 07:30 MPV 11.5 fl (7.5-11.1) H 03/26/17 07:30 Platelet Estimate Decreased (NORMAL) 03/26/17 07:30 Platelet Comment Mod giant plts 03/26/17 07:30 Platelet Comment Many large plts 03/26/17 07:30 Sodium 138 mmol/L (136-145) 03/26/17 07:30 Potassium 3.8 mmol/L (3.5-5.1) 03/26/17 07:30 Chloride 103 mmol/L (98-107) 03/26/17 07:30 Carbon Dioxide 30 mmol/L (21-32) 03/26/17 07:30 Anion Gap 5 (8-16) L 03/26/17 07:30 BUN 10 mg/dL (7-18) D 03/26/17 07:30 Creatinine 0.7 mg/dL (0.7-1.3) 03/26/17 07:30 Creat Clearance w eGFR > 60 (>60) 03/26/17 07:30 Random Glucose 97 mg/dL (74-106) 03/26/17 07:30 Calcium 9.0 mg/dL (8.5-10.1) 03/26/17 07:30 Total Bilirubin 0.7 mg/dL (0.2-1.0) D 03/26/17 07:30 AST 18 U/L (15-37) D 03/26/17 07:30 ALT 32 U/L (12-78) D 03/26/17 07:30 Alkaline Phosphatase 88 U/L (45-117) 03/26/17 07:30 Total Protein 6.8 g/dl (6.4-8.2) 03/26/17 07:30 Albumin 3.4 g/dl (3.4-5.0) 03/26/17 07:30 Urine Color Straw 03/25/17 19:07 Urine Appearance Clear 03/25/17 19:07 Urine pH 6.0 (5.0-8.0) 03/25/17 19:07 Ur Specific [place] <= 1.005 (1.005-1.025) 03/25/17 19:07 Urine Protein Negative (NEGATIVE) 03/25/17 19:07 Urine Glucose (UA) Negative (NEGATIVE) 03/25/17 19:07 Urine Ketones Negative (NEGATIVE) 03/25/17 19:07 Urine Blood Negative (NEGATIVE) 03/25/17 19:07 Urine Nitrite Negative (NEGATIVE) 03/25/17 19:07 Urine Bilirubin Negative (NEGATIVE) 03/25/17 19:07 Urine Urobilinogen Negative mg/dL (0.2-1.0) 03/25/17 19:07 Ur Leukocyte Esterase Negative (NEGATIVE) 03/25/17 19:07 RPR Titer Nonreactive (NONREACTIVE) 03/26/17 07:30 HIV 1&2 Antibody Screen Negative 03/26/17 07:30 HIV P24 Antigen Negative 03/26/17 07:30 03/27/17 10:31 Assessment: 03/27/17 10:31 WITHDRAWAL SYMPT Plan: CONTINUE DETOX
[2017-03-27] MEDS: chlordiazePOXIDE 5 MG CAPSULE PO SCH ×2 (17:24→22:16)
[2017-03-27] MEDS: diphenhydrAMINE HCL 50 MG CAPSULE PO PRN (22:15)
[2017-03-27] MEDS: THIAMINE HCL 100 MG TABLET (FP) PO SCH (22:15)
[2017-03-28] MEDS: chlordiazePOXIDE 5 MG CAPSULE PO SCH ×2 (05:20→10:53)
[2017-03-28] MEDS: prednisoLONE ACETATE 1% OPHTH SUSP 5 ML BOTTLE OU SCH ×3 (07:05→22:13)
[2017-03-28] MEDS: PRENATAL VITAMINS W/ FOLIC ACID TABLET (FP) PO SCH (10:53)
[2017-03-28] MEDS: NICOTINE 21 MG/24 HOURS TOPICAL PATCH TD SCH (10:53)
--- NOTE | 2017-03-28 11:00 | PN ---
BHS Progress Note (SOAP) Subjective: ALERT,IRRITABLE,INTERRUPTED SLEEP Objective: 03/28/17 10:59 Vital Signs Temperature 96.8 F L 03/28/17 10:00 Pulse Rate 72 03/28/17 10:00 Respiratory Rate 18 03/28/17 10:00 Blood Pressure 116/63 03/28/17 10:00 O2 Sat by Pulse Oximetry (%) Assessment: 03/28/17 10:59 WITHDRAWAL SYMPTOM Plan: CONTINUE DETOX,DISCHARGE IN AM
[2017-03-28] MEDS: hydrOXYzine PAMOATE 50 MG CAPSULE (FP) PO PRN (13:34)
[2017-03-28] MEDS: chlordiazePOXIDE HCL 10 MG CAPSULE PO SCH ×2 (17:06→22:13)
[2017-03-28] MEDS: THIAMINE HCL 100 MG TABLET (FP) PO SCH (22:13)
[2017-03-28] MEDS: diphenhydrAMINE HCL 50 MG CAPSULE PO PRN (22:14)
[2017-03-29 06:16] VITALS: BP 119/61; PULSE 81; TEMP 97.5
[2017-03-29] MEDS: chlordiazePOXIDE HCL 10 MG CAPSULE PO SCH (06:38)
[2017-03-29] MEDS: prednisoLONE ACETATE 1% OPHTH SUSP 5 ML BOTTLE OU SCH (06:48)
== END 2017-03-29 07:00 | disposition home or self-care (01) | DRG 775 ==
LOC: YASAS 13:05 → Y6N 14:10
PROVIDERS: ADMIT Internal Medicine; ATTEND Internal Medicine
PROC: HZ2ZZZZ Detoxification Services for Substance Abuse Treatment (ICD-10-PCS; principal; 2017-03-25)
DX: F10.230 Alcohol dependence with withdrawal, uncomplicated (principal); F17.210 Nicotine dependence, cigarettes, uncomplicated; F19.24 Other psychoactive substance dependence with psychoactive substance-induced mood disorder; F33.9 Major depressive disorder, recurrent, unspecified; M25.572 Pain in left ankle and joints of left foot; G89.29 Other chronic pain; Z98.49 Cataract extraction status, unspecified eye; Z91.5 Personal history of self-harm; R76.11 Nonspecific reaction to tuberculin skin test without active tuberculosis
CPT/HCPCS: 36415; 80053; 81003; 85027; 86593; 87389; 90688; 93005; 93010; G0008